=== PATIENT | female | born 2000 | race Two or more races ===

== ENCOUNTER 2022-12-17 19:05 | Inpatient (IN) | payer OTHER ==
[2022-12-17] MEDS ORDERED: OXYTOCIN 30 UNITS in 0.9% NS 30 UNIT/500 ML INFUS.BAG IVPB SCH (20:45)
[2022-12-17 21:00] VITALS: BMI 52.7
[2022-12-17] MEDS ORDERED: OXYTOCIN 30 UNITS in 0.9% NS 30 UNIT/500 ML INFUS.BAG IVPB ONE (21:14)
[2022-12-17] MEDS: ELECTROLYTE-148 SOLN 1,000 ML IV SCH (21:30)
[2022-12-18] MEDS ORDERED: LIDO 2%/EPI 1:200000 PRESRVFRE (20 ML SDVIAL) ONE (01:55)
[2022-12-18] MEDS ORDERED: BUPIVACAINE HCL/PF 0.25% (2.5MG/ML) 10 ML VIAL ONE (01:55)
[2022-12-18] MEDS ORDERED: FENTANYL CITRATE/PF 50 MCG/ML VIAL ONE (01:55)
[2022-12-18] MEDS ORDERED: FENTANYL/BUPIVACAINE/NS/PF - PCEA - 50 ML DISP.SYRIN EP ONE ×2 (02:29→06:04)
[2022-12-18] MEDS: FENTANYL/BUPIVACAINE/NS/PF - PCEA - 50 ML DISP.SYRIN EP SCH ×2 (02:35→06:05)
[2022-12-18] MEDS ORDERED: NALOXONE HCL 0.4 MG/ML VIAL IVPUSH PRN (03:57)
[2022-12-18] MEDS: ELECTROLYTE-148 SOLN 1,000 ML IV SCH (03:58)
[2022-12-18] MEDS ORDERED: LIDOCAINE HCL 1% PRESERVATIVE FREE - 30ML VIAL ONE (04:14)
[2022-12-18] MEDS ORDERED: OXYTOCIN 20 UNITS in 0.9% NS 20 UNIT/1,000 ML INFUS.BAG IV ONE (06:34)
[2022-12-18] MEDS ORDERED: METHYLERGONOVINE MALEATE 0.2 MG/1 ML AMP IM PRN (10:14)
[2022-12-18] MEDS ORDERED: BENZOCAINE 20% 57 GM BOTTLE TP PRN (10:14)
[2022-12-18] MEDS ORDERED: oxyCODONE HCL 5 MG TABLET PO PRN (10:14)
[2022-12-18] MEDS ORDERED: IBUPROFEN 600 MG TABLET (FP) PO PRN (10:14)
[2022-12-18] MEDS ORDERED: BENZOCAINE 28 GM HEMORRHOIDAL OINTMENT TP PRN (10:14)
[2022-12-18] MEDS ORDERED: ACETAMINOPHEN 325 MG TABLET (FP) PO PRN (10:14)
[2022-12-18] MEDS ORDERED: BISACODYL 10 MG SUPP.RECT RC PRN (10:14)
[2022-12-18] MEDS ORDERED: WITCH HAZEL 50% (TUCKS) 40 PAD/JAR PAD TP PRN (10:14)
[2022-12-18] MEDS ORDERED: OXYTOCIN 20 UNITS in 0.9% NS 20 UNIT/1,000 ML INFUS.BAG IV SCH (10:15)
[2022-12-19 07:44] LABS: BASO % 0.6 % (0-2.0); EOS % 0.8 % (0-4.5); HEMATOCRIT 29.7 % (32.4-45.2); HEMOGLOBIN 10.3 GM/dL (10.7-15.3); LYMPH % 27.2 % (8-40); MCH 29.5 pg (25.7-33.7); MCHC 34.5 g/dl (32.0-36.0); MEAN CELL VOLUME 85.3 fl (80-96); MEAN PLT VOLUME 9.4 fl (7.5-11.1); MONO % 6.3 % (3.8-10.2); NEUT % 65.1 % (42.8-82.8); PLATELET COUNT 313 10^3/uL (134-434); RBC 3.48 M/mm3 (3.60-5.2); RDW 13.9 % (11.6-15.6); WHITE BLOOD COUNT 11.1 K/mm3 (4.0-10.0)
[2022-12-19] MEDS ORDERED: SENNOSIDES/DOCUSATE COMBO (SENNA PLUS) TABLET (UD) PO PRN (22:00)
[2022-12-20 09:04] VITALS: BP 128/76; PULSE 80; RESP 18; TEMP 98.2
== END 2022-12-20 13:00 | disposition home or self-care (01) | DRG 807 ==
LOC: JERBED 19:05 → JLDR 20:33 → J3W 12-18 11:30
PROVIDERS: ADMIT Specialist; ATTEND Specialist
PROC: 0HQ9XZZ Repair Perineum Skin, External Approach (ICD-10-PCS; principal; 2022-12-18)
PROC: 10E0XZZ Delivery of Products of Conception, External Approach (ICD-10-PCS; 2022-12-18)
DX: O99.214 Obesity complicating childbirth (principal); Z37.0 Single live birth; E66.9 Obesity, unspecified; O70.0 First degree perineal laceration during delivery; Z3A.39 39 weeks gestation of pregnancy
CPT/HCPCS: 36415; 85025